=== PATIENT | male | born 1940 | race Caucasian/White ===

== ENCOUNTER → 2017-12-18 12:21 | Outpatient (CLI) | payer MEDICARE, SELFPAY ==
[2017-12-18 12:51] LABS: ALB/GLOB Ratio 1.1 RATIO (0.9-2.4); AST(SGOT) 20 U/L (15-37); Alanine Aminotransfer ALT/SGPT 26 U/L (16-61); Albumin, Serum 3.6 g/dL (3.2-5.0); Alkaline Phosphatase 106 U/L (45-117); Anion Gap 4 (5-15); BUN 20 mg/dL (7-18); BUN/Creat Ratio 15.3 RATIO (10-20); Calcium,Total 8.4 mg/dL (8.5-10.1); Chloride 106 mmol/L (98-107); Cholesterol 69 mg/dL (200); Creatinine, Serum 1.31 mg/dL (0.70-1.30); EST Glomerular Filtration Rate 56 mL/min (>60); Est Glom Filt Rate - Afr Amer 68 mL/min (>60); Globulin 3.4 g/dL (2.2-4.2); Glucose 95 mg/dL (74-106); High Density Lipoprotein 33 mg/dL; Potassium 4.8 mmol/L (3.5-5.1); Sodium Level 138 mmol/L (136-145); Triglycerides 101 mg/dL; Very Low Density Lipoprotein 20 mg/dL (5-40)
[2017-12-18 13:00] LABS: Hemoglobin A1c 5.6 % (4.2-6.3)
== END ==
PROVIDERS: Family Provider Family Medicine; PCP Family Medicine; Visit Provider Family Medicine
DX: E78.2 Mixed hyperlipidemia (principal); I10 Essential (primary) hypertension; Z79.899 Other long term (current) drug therapy
CPT/HCPCS: 80053; 80061; 83036

== ENCOUNTER → 2018-07-24 12:11 | Outpatient (CLI) | payer MEDICARE, SELFPAY ==
[2018-07-24 13:02] LABS: AST(SGOT) 22 U/L (15-37); Alanine Aminotransfer ALT/SGPT 26 U/L (16-61); Albumin, Serum 3.4 g/dL (3.2-5.0); Alkaline Phosphatase 119 U/L (45-117); Anion Gap 4 (5-15); BUN 22 mg/dL (7-18); BUN/Creat Ratio 19.5 RATIO (10-20); Calcium,Total 8.2 mg/dL (8.5-10.1); Chloride 107 mmol/L (98-107); Cholesterol 81 mg/dL (200); Creatinine, Serum 1.13 mg/dL (0.70-1.30); EST Glomerular Filtration Rate 67 mL/min (>60); Est Glom Filt Rate - Afr Amer 81 mL/min (>60); Globulin 3.4 g/dL (2.2-4.2); Glucose 99 mg/dL (74-106); High Density Lipoprotein 32 mg/dL; Potassium 4.4 mmol/L (3.5-5.1); Protein, Total 6.8 g/dL (6.4-8.2); Sodium Level 139 mmol/L (136-145); Triglycerides 112 mg/dL; Very Low Density Lipoprotein 22 mg/dL (5-40)
[2018-07-24 13:05] LABS: Hemoglobin A1c 5.8 % (4.2-6.3)
[2018-07-24 18:47] LABS: Microalbumin,Random Urine 15.5 mg/L (NO RANGE EST.); Microalbumin:Creatinine Ratio 11.7 mg/g CRE (<30 mg/g CRE)
== END ==
PROVIDERS: Family Provider Family Medicine; PCP Family Medicine; Referring Provider Family Medicine; Visit Provider Family Medicine
DX: Z79.899 Other long term (current) drug therapy (principal)
CPT/HCPCS: 80053; 80061; 82043; 82570; 83036

== ENCOUNTER → 2019-01-28 12:32 | Outpatient (CLI) | payer MEDICARE, SELFPAY ==
[2018-02-11 13:55] VITALS: BMI 26.6
[2019-01-28 13:46] LABS: Hematocrit 37.6 % (40-54); Hemoglobin 12.7 g/dl (13.0-16.5); Mean Corp Hgb Conc 33.8 g/gl (32-36); Mean Corpuscular Hgb 29.8 pg (27.0-32.0); Mean Corpuscular Volume 88.3 fL (80-94); Mean Platelet Vol. 9.8 fl (6.2-12.0); Platelet Count 243 K/mm3 (150-450); RBC Distribution Width CV 12.8 % (11.6-14.6); RBC Distribution Width SD 41.1 fl (35.1-43.9); Red Blood Count 4.26 M/mm3 (4.6-6.2); White Blood Count 7.7 K/mm3 (4.4-11.0)
[2019-01-28 13:52] LABS: Scan Indicated on CBC? Y/N NO
[2019-01-28 13:58] LABS: AST(SGOT) 19 U/L (15-37); Alanine Aminotransfer ALT/SGPT 22 U/L (16-61); Albumin, Serum 3.4 g/dL (3.2-5.0); Alkaline Phosphatase 101 U/L (45-117); Anion Gap 4 (5-15); BUN 22 mg/dL (7-18); BUN/Creat Ratio 17.2 RATIO (10-20); Calcium,Total 8.4 mg/dL (8.5-10.1); Chloride 106 mmol/L (98-107); Cholesterol 73 mg/dL (200); Creatinine, Serum 1.28 mg/dL (0.70-1.30); EST Glomerular Filtration Rate 58 mL/min (>60); Est Glom Filt Rate - Afr Amer 70 mL/min (>60); Globulin 3.5 g/dL (2.2-4.2); Glucose 101 mg/dL (74-106); High Density Lipoprotein 32 mg/dL; Potassium 5.1 mmol/L (3.5-5.1); Protein, Total 6.9 g/dL (6.4-8.2); Sodium Level 137 mmol/L (136-145); Triglycerides 89 mg/dL; Very Low Density Lipoprotein 18 mg/dL (5-40)
== END ==
PROVIDERS: Family Provider Family Medicine; PCP Family Medicine; Referring Provider Family Medicine; Visit Provider Family Medicine
DX: Z79.899 Other long term (current) drug therapy (principal); E78.2 Mixed hyperlipidemia; I10 Essential (primary) hypertension; R73.03 Prediabetes
CPT/HCPCS: 80053; 80061; 83036; 85027

== ENCOUNTER → 2019-12-07 08:27 | Outpatient (CLI) | payer MEDICARE, SELFPAY ==
[2019-02-10 11:43] VITALS: BMI 26.6
[2019-12-07 14:59] LABS: Cholesterol 82 mg/dL (200); High Density Lipoprotein 33 mg/dL; Triglycerides 121 mg/dL; Very Low Density Lipoprotein 24 mg/dL (5-40)
== END ==
PROVIDERS: PCP Family Medicine; Referring Provider Family Medicine; Visit Provider Family Medicine
DX: I25.720 Atherosclerosis of autologous artery coronary artery bypass graft(s) with unstable angina pectoris (principal); I25.119 Atherosclerotic heart disease of native coronary artery with unspecified angina pectoris; E78.2 Mixed hyperlipidemia; I10 Essential (primary) hypertension; R73.03 Prediabetes
CPT/HCPCS: 80061; 83036

== ENCOUNTER → 2020-03-21 06:49 | Outpatient (CLI) | payer MEDICARE, SELFPAY ==
[2020-03-03 14:51] VITALS: BMI 28.0
--- NOTE | 2020-03-21 06:51 | ECHOCS_ITS ---
Reason For Study: S/P CABG Procedure This was a 2D Doppler, Color Flow transthoracic echocardiogram. The study was technically difficult. Contrast injection was performed. Exam performed in department. Left Ventricle Normal LV size. Sigmoid septum. The estimated ejection fraction is 60 %. Stage 1 diastolic dysfunction. No regional wall motion abnormalities noted. Right Ventricle Normal RV size. Normal systolic function. Atria Normal left atrium. Normal right atrium. Mitral Valve Normal mitral valve. Mild (1+) anteriorly directed mitral valve insufficiency. Tricuspid Valve Normal tricuspid valve. Mild (1+) tricuspid valve insufficiency. Pulmonary artery systolic pressure is 28 mmHg. Aortic Valve Trisinus/trileaflet aortic valve. Mild (1+) aortic valve insufficiency. Pulmonic Valve Normal pulmonic valve. Trivial pulmonic valve insufficiency. Great Vessels Normal aortic root. The pulmonary artery is normal size. Normal inferior vena cava. Pericardium/Pleural No pericardial effusion. Medication 22 gauge I.V. with prn adaptor inserted into right arm. Diluted definity 2ml given slow IV push to enhance endocardial definition. MMode/2D Measurements & Calculations LVIDd: 4.1 cm IVSd: 1.1 cm Ao root diam: 3.7 cm LVIDs: 2.7 cm LVPWd: 0.98 cm LA dimension: 4.1 cm FS: 32.5 % LAV(MOD-bp): 59.0 ml LA A4 area: 20.2 cm2 RA A4 area: 17.7 cm2 LAV(MOD-bp) Indexed: 29.2 ml/m2 LAV(MOD-sp2): 60.7 ml LAV(MOD-sp4): 57.2 ml Time Measurements MV dec time: 0.33 sec Doppler Measurements & Calculations MV E max augustus: 69.5 cm/sec Lat Peak E' Augustus: 10.6 cm/sec Med Peak E' Augustus: 5.4 cm/sec MV A max augustus: 83.8 cm/sec E/E' lat: 6.6 E/E' med: 12.8 MV E/A: 0.83 MV V2 max: 87.6 cm/sec MV P1/2t max augustus: 70.7 cm/sec Ao V2 max: 128.9 cm/sec MV max P.1 mmHg MV P1/2t: 82.4 msec Ao max P.6 mmHg MV V2 mean: 42.2 cm/sec MV dec slope: 251.6 cm/sec2 MV mean P.88 mmHg MV V2 VTI: 25.4 cm MVA(P1/2t): 2.7 cm2 AI max augustus: 310.6 cm/sec LV V1 max: 94.4 cm/sec PA V2 max: 96.3 cm/sec AI max P.8 mmHg LV V1 max P.6 mmHg AI dec slope: 174.2 cm/sec2 AI P1/2t: 522.4 msec PI end-d augustus: 116.5 cm/sec TR max augustus: 246.5 cm/sec TR max P.3 mmHg Interpretation Summary Normal LV size. The estimated ejection fraction is 60 %. Stage 1 diastolic dysfunction. Mild (1+) aortic valve insufficiency. Pulmonary artery systolic pressure is 28 mmHg. Contrast injection was performed. Ordering Physician: Tres Kirby Referring Physician: MD Trevor Aureliano Performed By: Riley Motley RCS
--- NOTE | 2020-03-21 10:10 | STRESSREP ---
Stress Test Report Exercise myocardial perfusion stress test. 79-year-old man with a history of angioplasty of the left anterior descending artery and coronary artery bypass surgery. Stress protocol: Resting EKG demonstrates normal sinus rhythm with a rate of 61 bpm T wave inversions noted in lead III and aVF poor R wave progression is noted. The patient exercised according to regular Rob protocol for a total duration of 9 minutes. The maximum heart rate attained was 110 bpm which was 78% of max impacted heart rate the maximum workload was 10.1 metabolic equivalents. The patient completed stage III of the Rob protocol. The resting blood pressure was 158/60 with a peak blood pressure 174/62 mmHg. The test was terminated due to dyspnea. T wave inversions were noted during the resting. As well as during exertion. No clinical angina was noted. Myocardial perfusion protocol. 11.1 mCi of technetium 99m sestamibi was injected at rest. The patient exercised according to regular Rob protocol for a total duration of 9 minutes. At peak exercise 33.2 mCi of technetium 99m sestamibi was injected stress images were obtained stress and rest images were reconstructed and compared in the short axis vertical long horizontal long axis. Gated images were also obtained P Perfusion SPECT analysis: Review of the stress images demonstrate normal perfusion noted in the anterior wall and lateral wall. There is a perfusion defect noted in the basal and mid inferior wall noted on the stress images. The resting images demonstrate improvement in this area suggesting basal and mid inferior ischemia. The rest of the smith appear to be well perfused. Gated SPECT analysis: The gated ejection fraction is 66%. Conclusion: Abnormal exercise myocardial perfusion stress test with evidence of basal and mid and ischemia at a high workload. Preserved ejection fraction.
== END ==
PROVIDERS: PCP Family Medicine; Referring Provider Internal Medicine Cardiovascular Disease; Visit Provider Internal Medicine Cardiovascular Disease
DX: I25.10 Atherosclerotic heart disease of native coronary artery without angina pectoris (principal); Z95.1 Presence of aortocoronary bypass graft
CPT/HCPCS: 78452; 93017; 93306; A9500; Q9957; A4216; C8929

== ENCOUNTER 2020-03-28 09:51 | Day surgery (SDC) | payer MEDICARE, SELFPAY ==
[2020-03-03 14:51] VITALS: BMI 28.0
--- NOTE | 2020-03-23 10:17 | RAD_ITS ---
STUDY: X-RAY CHEST REASON FOR EXAM: Male, 79 years old. pt states abnormal stress test 2 days ago, bypass 4 years ago, takes HBP medications, former smoker TECHNIQUE: 2 views COMPARISON: Prior chest radiograph of 09/17/2016 FINDINGS: The lungs are clear and expanded. Mild chronic elevation of the anterior right diaphragm. Normal size heart. Status post prior midline sternotomy. Normal visualized pulmonary arteries. There is atherosclerotic calcification of the aortic arch with tortuosity. Normal visualized thoracic spine. Normal visualized ribs, clavicles, and shoulders. There is no demonstrated abnormality of the visualized soft tissue structures of the upper abdomen. RAD/Chest PA and Lateral IMPRESSION: No acute cardiopulmonary findings or changes status post prior midline sternotomy. Negative for infiltrates, consolidation, atelectasis, cardiomegaly or pleural effusion. Electronically Signed: Tamie Richey MD at 20:25 EDT , Service support ,
[2020-03-23 10:57] LABS: Absolute Lymphocyte Count 1.82 X10^3/uL (0.83-4.51); Absolute Neutrophil Count 3.7 X10^3/uL (2.0-7.7); Basophil# 0.07 X10^3/uL; Eosinophil# 0.51 X10^3/uL; Eosinophils% 7.3 % (0-5); Hematocrit 38.7 % (40-54); Hemoglobin 12.9 g/dL (13.0-16.5); Lymphocyte # 1.82 X10^3/ul (4.0); Lymphocyte % 25.9 % (19-41); Mean Corp Hgb Conc 33.3 g/dL (32-36); Mean Corpuscular Hgb 30.5 pg (27.0-32.0); Mean Corpuscular Volume 91.5 fL (80-94); Mean Platelet Vol. 9.9 fl (6.2-12.0); Monocyte# 0.87 X10^3/uL; Monocyte% 12.4 % (0-10); NRBC Flagged by Analyzer 0 % (0-5); Neutrophil # 3.74 X10^3/uL (2.7-7.7); Neutrophil % 53.1 % (47-70); Platelet Count 206 K/mm3 (150-450); RBC Distribution Width SD 40.3 fl (35.1-43.9); Red Blood Count 4.23 M/mm3 (4.6-6.2)
[2020-03-23 11:04] LABS: International Normalized Ratio 1.1; Prothrombin Time (Protime)PT. 13.7 SECONDS (11.7-14.9)
[2020-03-23 11:05] LABS: Partial Thromboplast Time 29.6 Seconds (24.1-36.2)
[2020-03-23 11:42] LABS: Anion Gap 3 (5-15); BUN 19 mg/dL (7-18); BUN/Creat Ratio 14.8 RATIO (10-20); Calcium,Total 8.5 mg/dL (8.5-10.1); Chloride 107 mmol/L (98-107); Creatinine, Serum 1.28 mg/dL (0.70-1.30); EST Glomerular Filtration Rate 58 mL/min (>60); Est Glom Filt Rate - Afr Amer 70 mL/min (>60); Glucose 100 mg/dL (74-106); Potassium 4.4 mmol/L (3.5-5.1); Sodium Level 138 mmol/L (136-145)
--- NOTE | 2020-03-28 12:33 | CL.D_ITS ---
Patient Name: JOSSELIN LIN Study Date: 03/28/2020 Performing: Tres Kirby MD Ht: 68.89 inches 175 cm : 1940 Wt: 189.6 lbs 86 kg Age: 79 Gender: male BSA: 2.02 PROCEDURE(S) PERFORMED LV41-YPF/COR/CABG CLINICAL PROFILE AND INDICATIONS Indications: Suspected CAD Heart Failure: None Stress/Imaging Date: 03/21/2020Stress Test with SPECT MPI: Positive Low Risk CONCLUSIONS Patent coronary artery bypass graft with a COTE to the LAD, saphenous vein graft to the obtuse margin al branch, saphenous vein graft to the diagonal vessel, and saphenous vein graft to the right coronar y artery. RECOMMENDATIONS Medical therapy DESCRIPTION OF PROCEDURE The patient arrived to the procedure lab. The risks and benefits of the procedure as well as a full d escription of our services here and current unavailability of surgical backup were fully explained to the patient and/or their significant other prior to the catheterization. The Timeout was completed, verifying the correct patient and procedure. The patient's procedural site was prepped and draped in the usual fashion. Local anesthetic was given subcutaneously to left radial region with Lidocaine 2%. Using a modified Seldinger technique, arterial access was obtained via the left radial artery, a 6Fr sheath was inserted. Left internal mammary artery graft to the LAD selective angiography was perfor med in multiple views using a 5 Fr. IM catheter. Right Coronary Artery selective angiography was then performed in multiple views using a 5 Fr. JR4 catheter. Saphenous Vein graft to the DIAG 1 selective angiography was performed in multiple views using a 5 Fr. JR 4 catheter. Saphenous Vein graft to the OM 1 selective angiography was performed in multiple views using a 5 Fr. JR 4 catheter. Saphenous Vein graft to the RPDA selective angiography was performed in multiple views using a 5 Fr. AR MOD catheter. Saphenous Vein graft to the DIAG 1 selective angiography was performed in multiple v iews using a 5 Fr. AR MOD catheter. Left Coronary Artery selective angiography was performed in multi ple views using a 5 Fr. JL4 catheter.The arterial sheath was pulled and a TR Band was applied for hem ostasis CORONARY ANGIOGRAPHY DOMINANCE: Right Dominant LEFT HEART ASSESSMENT Left Ventricular Ejection Fraction: by Echo 60 % Normal LV wall motion Normal Left Ventricular systolic function LEFT MAIN: Ostial 80 LEFT ANTERIOR DESCENDING ARTERY: PROX LAD: is occluded CIRCUMFLEX ARTERY: Severely diseased left circumflex artery. RIGHT CORONARY ARTERY: PROX RCA: is occluded GRAFTS: COTE graft to the Mid LAD is patent Saphenous Vein graft to the 1st OM is patent Saphenous Vein graft to the 1st Diagonal is patent Saphenous Vein graft to the RPDA is patent COLLATERAL FLOW: Collateral flow from Left to Right COMPLICATIONS No Complications PROCEDURE MEDICATIONS Fentanyl 50 mcg IV Versed 1 mg IV Baby Aspirin (81mg) 1 Tabs PO @ 03/28/2020 10:14:57 Heparin diluted in 23cc Heparinized saline. Patient given 10cc IA of this solution. 03/28/2020 11:44: 39 Verapamil 2.5mg, Ntg 100mcgs, 2000 units of Heparin diluted in 23cc Heparinized saline. Patient give n 10cc IA of this solution. 03/28/2020 11:44:39 SUMMARY OF HEMODYNAMIC DATA Time AIR REST ECG 10:19:54 AO 119/55 (80) SA 11:47:05 Signed By Tres Kirby MD On 03/28/2020 12:32:56 Tres Kirby MD
== END 2020-03-28 14:20 | disposition home or self-care (01) ==
LOC: CLSP 09:51
PROVIDERS: PCP Family Medicine; Referring Provider Internal Medicine Cardiovascular Disease; Visit Provider Internal Medicine Cardiovascular Disease
DX: I25.10 Atherosclerotic heart disease of native coronary artery without angina pectoris (principal); Z95.1 Presence of aortocoronary bypass graft; I25.2 Old myocardial infarction; Z79.82 Long term (current) use of aspirin; Z79.899 Other long term (current) drug therapy; Z79.02 Long term (current) use of antithrombotics/antiplatelets; I10 Essential (primary) hypertension; E78.5 Hyperlipidemia, unspecified; Z95.5 Presence of coronary angioplasty implant and graft; Z82.49 Family history of ischemic heart disease and other diseases of the circulatory system
CPT/HCPCS: 36415; 71046; 80048; 85025; 85610; 85730; 93455; 99152; 99153; J7040; Q9967; C1769; C1894

== ENCOUNTER → 2020-07-19 11:59 | Outpatient (CLI) | payer MEDICARE, SELFPAY ==
[2020-03-03 14:51] VITALS: BMI 28.0
[2020-07-19 12:38] LABS: Hematocrit 39.5 % (40-54); Hemoglobin 13.2 g/dL (13.0-16.5); Mean Corp Hgb Conc 33.4 g/dL (32-36); Mean Corpuscular Hgb 30.2 pg (27.0-32.0); Mean Corpuscular Volume 90.4 fL (80-94); Mean Platelet Vol. 9.8 fl (6.2-12.0); Platelet Count 232 K/mm3 (150-450); RBC Distribution Width SD 39.7 fl (35.1-43.9); Red Blood Count 4.37 M/mm3 (4.6-6.2); White Blood Count 8.2 K/mm3 (4.4-11.0)
[2020-07-19 12:58] LABS: Hemoglobin A1c 5.6 % (3.8-5.6)
[2020-07-19 12:59] LABS: AST(SGOT) 22 U/L (15-37); Alanine Aminotransfer ALT/SGPT 29 U/L (16-61); Albumin, Serum 3.4 g/dL (3.2-5.0); Alkaline Phosphatase 109 U/L (45-117); Anion Gap 2 (5-15); BUN 21 mg/dL (7-18); BUN/Creat Ratio 17.2 RATIO (10-20); Calcium,Total 8.6 mg/dL (8.5-10.1); Chloride 107 mmol/L (98-107); Cholesterol 84 mg/dL (200); Creatinine, Serum 1.22 mg/dL (0.70-1.30); EST Glomerular Filtration Rate 61 mL/min (>60); Est Glom Filt Rate - Afr Amer 74 mL/min (>60); Globulin 3.5 g/dL (2.2-4.2); Glucose 101 mg/dL (74-106); High Density Lipoprotein 37 mg/dL; Potassium 4.6 mmol/L (3.5-5.1); Protein, Total 6.9 g/dL (6.4-8.2); Sodium Level 138 mmol/L (136-145); Triglycerides 125 mg/dL; Very Low Density Lipoprotein 25 mg/dL (5-40)
== END ==
PROVIDERS: PCP Family Medicine; Visit Provider Family Medicine
DX: D64.9 Anemia, unspecified (principal); I10 Essential (primary) hypertension; I25.119 Atherosclerotic heart disease of native coronary artery with unspecified angina pectoris; R73.03 Prediabetes
CPT/HCPCS: 80053; 80061; 83036; 85027

== ENCOUNTER → 2021-03-16 08:50 | Outpatient (CLI) | payer MEDICARE, SELFPAY ==
[2021-03-07 14:53] VITALS: BMI 28.0
--- NOTE | 2021-03-16 08:55 | CDU_ITS ---
Reason For Study: Right carotid bruit Rt. Velocities/BP Lt. Velocities/BP Prox CCA 84.8/7.1 cm/sec. Prox CCA 110.1/6 cm/sec. Mid CCA 93.7/11.5 cm/sec. Mid CCA 79/6.5 cm/sec. Dist CCA 70.4/7.7 cm/sec. Dist CCA 96.2/7.7 cm/sec. Prox ICA 176.9/21.5 cm/sec. Prox ICA 169.1/31.9 cm/sec. Mid ICA 163/20.4 cm/sec. Mid ICA 147.7/18.2 cm/sec. Dist ICA 115.6/15.2 cm/sec. Dist ICA 134.5/16 cm/sec. Rt. ICA/CCA = 2.09. Lt. ICA/CCA = 2.14. Prox ECA 213.2 cm/sec. Prox ECA 156.5 cm/sec. Rt. Vert. 69.6/12.4 cm/sec. Lt. Vert. 50.9/5.8 cm/sec. Right Extracranial There is heterogeneous, irregular atherosclerotic plaque noted in the right common carotid artery. There is heterogeneous, irregular atherosclerotic plaque noted in the right internal carotid artery. There is heterogeneous, irregular atherosclerotic plaque noted in the right external carotid artery. Antegrade flow is noted in the right vertebral artery. Left Extracranial There is homogeneous, smooth atherosclerotic plaque noted in the left common carotid artery. There is heterogeneous, irregular atherosclerotic plaque noted in the left internal carotid artery. The atherosclerotic plaque causes acoustic shadowing. There is no significant atherosclerotic plaque noted in the left external carotid artery. Antegrade flow is noted in the left vertebral artery. Procedure Carotid Duplex [id number]. This is a Carotid Duplex examination using B-mode, color flow and specral Doppler. Exam performed in department. VL/Carotid Duplex Ultrasound Interpretation Summary Moderate (50-69%) stenosis right extracranial internal carotid. Moderate (50-69 %) stenosis left extracranial internal carotid. Flow within the vertebral arteries is antegrade bilaterally. Ordering Physician: Zara Caruso Referring Physician: MD Aureliano Murray Performed By: Katrin Bond RVT
== END ==
PROVIDERS: PCP Family Medicine; Referring Provider Physician Assistant Medical; Visit Provider Physician Assistant Medical
DX: R09.89 Other specified symptoms and signs involving the circulatory and respiratory systems (principal)
CPT/HCPCS: 93880

== ENCOUNTER → 2021-04-18 09:27 | Outpatient (CLI) | payer MEDICARE, SELFPAY ==
[2021-04-18 09:52] LABS: ALB/GLOB Ratio 0.9 RATIO (0.9-2.4); AST(SGOT) 22 U/L (15-37); Alanine Aminotransfer ALT/SGPT 27 U/L (16-61); Albumin, Serum 3.2 g/dL (3.2-5.0); Alkaline Phosphatase 108 U/L (45-117); Anion Gap 4 (5-15); BUN 20 mg/dL (7-18); Calcium,Total 8.3 mg/dL (8.5-10.1); Chloride 106 mmol/L (98-107); Cholesterol 79 mg/dL (200); Creatinine, Serum 1.25 mg/dL (0.70-1.30); EST Glomerular Filtration Rate 59 mL/min (>60); Est Glom Filt Rate - Afr Amer 71 mL/min (>60); Globulin 3.7 g/dL (2.2-4.2); Glucose 107 mg/dL (74-106); High Density Lipoprotein 36 mg/dL; Potassium 4.2 mmol/L (3.5-5.1); Protein, Total 6.9 g/dL (6.4-8.2); Sodium Level 137 mmol/L (136-145); Triglycerides 111 mg/dL; Very Low Density Lipoprotein 22 mg/dL (5-40)
[2021-04-18 11:26] LABS: Hemoglobin A1c 5.7 % (3.8-5.6)
== END ==
PROVIDERS: PCP Family Medicine; Referring Provider Family Medicine; Visit Provider Family Medicine
DX: R73.03 Prediabetes (principal); I25.119 Atherosclerotic heart disease of native coronary artery with unspecified angina pectoris; E78.2 Mixed hyperlipidemia
CPT/HCPCS: 80053; 80061; 83036

== ENCOUNTER → 2023-03-14 | Outpatient (CLI) | payer MEDICARE, SELFPAY ==
--- NOTE | 2023-03-14 08:43 | CDU_ITS ---
Reason For Study: CAROTID STENOSIS Rt. Velocities/BP Lt. Velocities/BP Prox CCA 130.8/10.2 cm/sec. Prox CCA 172.5/3.5 cm/sec. Mid CCA 94.2/8.4 cm/sec. Mid CCA 111.7/5.1 cm/sec. Dist CCA 80.1/5.4 cm/sec. Dist CCA 97.8/5.7 cm/sec. Prox ICA 214.0/124.5 cm/sec. Prox ICA 170.9/12.1 cm/sec. Mid ICA 149.0/12.1 cm/sec. Mid ICA 145.3/15.7 cm/sec. Dist ICA 141.7/15.7 cm/sec. Dist ICA 121.6/12.1 cm/sec. Rt. ICA/CCA = 214.0/94.2=2.3. Lt. ICA/CCA = 170.9/111.7=1.5. Prox ECA 224.3/19.7 cm/sec. Prox ECA 172.8/0.0 cm/sec. Rt. Vert. 25.6/8.0 cm/sec. Lt. Vert. 66.6/14.9 cm/sec. Right Extracranial There is heterogeneous, irregular atherosclerotic plaque noted in the right common carotid artery. There is heterogeneous, irregular atherosclerotic plaque noted in the right internal carotid artery. There is heterogeneous, irregular atherosclerotic plaque noted in the right external carotid artery. Antegrade flow is noted in the right vertebral artery. Left Extracranial There is homogeneous, smooth atherosclerotic plaque noted in the left common carotid artery. There is heterogeneous, irregular atherosclerotic plaque noted in the left internal carotid artery. The atherosclerotic plaque causes acoustic shadowing. There is homogeneous, smooth atherosclerotic plaque noted in the left external carotid artery. Procedure Carotid Duplex 84177. This is a Carotid Duplex examination using B-mode, color flow and specral Doppler. Exam performed in department. VL/Carotid Duplex Ultrasound Interpretation Summary Moderate (50-69%) stenosis right extracranial internal carotid. Moderate (50-69%) stenosis left extracranial internal carotid. Patent and antegrade vertebrals bilaterally. Limited study bilateral due to calcific shadowing, alternative imaging modality may be beneficial Ordering Physician: Zara Caruso Referring Physician: Aureliano Murray Performed By: Grace Hunter, DANNY, RVT
== END | disposition home or self-care (01) ==
LOC: CVS 08:42
PROVIDERS: PCP Family Medicine; Referring Provider Physician Assistant Medical; Visit Provider Physician Assistant Medical
DX: R09.89 Other specified symptoms and signs involving the circulatory and respiratory systems (principal)
CPT/HCPCS: 93880